=== PATIENT | male | born 1960 | race Caucasian/White ===

== ENCOUNTER → 2021-02-27 15:09 | Outpatient (CLI) | payer OTHER ==
[~2021-02-27 15:09] MED LIST: ALEGRA; KETO10TA2 PO; LOTREL 10-20 MG1 CAP; SIMVASTATIN5 MG; VALSARTAN160 MG
== END | disposition home or self-care (01) ==
LOC: PPH VACUNA 15:09
DX: Z23 Encounter for immunization (principal)

== ENCOUNTER 2022-03-03 08:00 | Outpatient (CLI) | payer OTHER | END 2022-03-03 08:30 | disposition home or self-care (01) | LOC: PPH VACUNA 08:00 | PROVIDERS: ATTEND Emergency Medicine Pediatric Emergency Medicine | DX: Z23 Encounter for immunization (principal) ==